=== PATIENT | female | born 1930 | race Caucasian/White ===

== ENCOUNTER → 2018-04-09 | Outpatient (CLI) | payer OTHER ==
[~2018-04-09] MED LIST: ALEVE220 MG PO; AMLODIPINE-VAL1 EACH PO; ASPIR 8181 M1 PO; BREO ELLIPTA 11 EACH IH; DIOVAN 80 MG TA80 M1 PO; DIOVAN160 MG PO; LASIX 40 MG TAB40 M2 PO; LEVAQUIN 500 M500 M1 PO; LIPITOR10 MG PO; MIRALAX17 GM PO; NORVASC5 MG PO; OXYBUTYNIN 5 MG5 M2 PO; OXYCODONE HCL 55 MG PO; PREDNISONE 10 M10 MG PO; PREDNISONE 20 M20 MG PO; TOPROL XL100 MG PO; VENTOLIN HFA 1818 GM INH; XARELTO10 MG PO
== END ==
LOC: M.ULTRA 10:08
DX: M79.89 Other specified soft tissue disorders (principal); M25.562 Pain in left knee; M79.662 Pain in left lower leg; R60.0 Localized edema; I10 Essential (primary) hypertension; I48.91 Unspecified atrial fibrillation; I25.10 Atherosclerotic heart disease of native coronary artery without angina pectoris; Z96.652 Presence of left artificial knee joint